=== PATIENT | female | born 1955 | race Caucasian/White ===

== ENCOUNTER 2020-11-03 15:36 | Outpatient (CLI) | payer OTHER, SELFPAY ==
--- NOTE | 2020-11-03 15:42 | XR_ITS ---
WS: [id number] Bone mineral density performed on a Values of n, 11/03/2020 Clinical data: AGE RELATED OSTEOPOROSIS COMPARISON STUDY: None. Findings: The first 4 lumbar vertebral bodies demonstrated the bone mineral density of 1.170 g/cm2 for a young adult T score of -0.1. Measurement of the left hip reveals a bone mineral density of 1.054 g/cm2 with a young adult T score of 0.4. Measurement of the right hip reveals the bone mineral density of 1.054 g/cm2 for young adult T score of 0.4. XR/XR DEXA axial skeleton* [id number] Impression: Normal bone mineral density of the lumbar spine and both hips.
== END 2020-11-03 15:37 | disposition home or self-care (01) ==
LOC: RADWPI 15:41
PROVIDERS: PCP Nurse Practitioner; Visit Provider Nurse Practitioner
DX: M81.0 Age-related osteoporosis without current pathological fracture (principal)
CPT/HCPCS: 77080